=== PATIENT | male | born 1935 | race Caucasian/White ===

== ENCOUNTER 2021-11-04 08:09 | Emergency (ER) | payer OTHER, MEDICARE, BC ==
[~2021-11-04] VITALS: Ht 170.2 cm; Wt 72.7 kg
[~2021-11-04 08:09] MED LIST: ASPIRIN 32325 MG/TAB PO; ASPIRIN 81M81 MG/TA2 PO; ATENOLOL50 MG PO; BETAPACE 80MG80 MG PO; CLOPIDOGREL PO; COREG 25MG25 MG/TAB PO; CRESTOR20 MG PO; DOXAZOCIN PO; FISH OIL CONC1000 MG PO; FLOMAX 0.40.4 MG/CAP PO; GARLIC SUPPLEM300 MG PO; LIPITOR 80MG80 MG PO; MIRALAX PA17 GM/Dose PO; NORVASC 5MG5 MG/TAB PO; PRESERVISION1 SGL PO; REMERON SOLTAB15 MG PO; VITAMIN C BUFF500 MG PO; VITAMIN C500 MG PO; ZOCOR 20MG20 MG PO
[2021-11-04 08:20] VITALS: TEMP 97.6
[2021-11-04 09:38] LABS: BASO % 0.3 % (0.0-2.0); EOS # 0.5 K/mm3 (0.0-0.7); EOS % 3.6 % (0.0-4.0); GRAN # 10.7 K/mm3 (1.4-6.5); GRAN % 77.9 % (42.2-75.2); HEMATOCRIT 45.4 % (42.0-52.0); HEMOGLOBIN 14.9 g/dl (13.5-18.0); LYMPH # 1.8 K/mm3 (1.2-3.4); LYMPH % 12.9 % (20.0-51.0); MEAN CELL VOLUME 92 fl (80.0-100.0); MEAN CORPUSCULAR HEMOGLOBIN 30 pg (27-31); MEAN CORPUSCULAR HGB CONC 33 g/dl (33.0-37.0); MEAN PLATELET VOLUME 10.9 fl (7.4-10.4); MONO # 0.7 K/mm3 (0.1-0.6); MONO % 4.9 % (1.7-9.3); PLATELET COUNT 123 K/mm3 (130-400); RED BLOOD COUNT 4.92 M/mm3 (4.20-5.60); REDCELL DISTRIBUTION WIDTH-CV 13.3 % (11.5-14.5)
[2021-11-04 09:59] LABS: ALBUMIN 3.5 gm/dL (3.4-4.8); BILIRUBIN,TOTAL 1.1 mg/dL (0.2-1.2); CALCIUM 9.2 mg/dL (8.4-10.2); CREATININE, serum 1.12 mg/dL (0.72-1.25); POTASSIUM 4.7 mmol/L (3.5-4.5); TOTAL PROTEIN 6.8 gm/dL (6.2-8.1)
[2021-11-04 10:03] VITALS: BP 134/76; PULSE 77
== END 2021-11-04 10:02 | disposition home or self-care (01) ==
LOC: COL.ER 08:09
PROVIDERS: Family Medicine
DX: S00.93XA Contusion of unspecified part of head, initial encounter (principal); S40.012A Contusion of left shoulder, initial encounter; S80.12XA Contusion of left lower leg, initial encounter; Z87.891 Personal history of nicotine dependence; V49.40XA Driver injured in collision with unspecified motor vehicles in traffic accident, initial encounter; Y92.410 Unspecified street and highway as the place of occurrence of the external cause

== ENCOUNTER 2022-01-21 10:07 | Emergency (ER) | payer MEDICARE, BC ==
[~2022-01-21] VITALS: Ht 170.2 cm; Wt 72.7 kg
[2022-01-21] VITALS (78 sets, daily range): BP systolic 138; BP diastolic 78; PULSE 52; TEMP 96.8; O2SAT 77–99
[~2022-01-21 10:07] MED LIST changes: +COREG12.5 MG PO; +COZAAR 50MG50 MG/TAB PO; +EFFIENT10 MG PO; +JARDIANCE10 PO; +LASIX 20MG TABL20 MG PO; +LIPITOR 40MG TA40 MG PO
[2022-01-21 10:41] LABS: BASO % 0.6 % (0.0-2.0); EOS # 0.5 K/mm3 (0.0-0.7); EOS % 7.7 % (0.0-4.0); GRAN # 4.1 K/mm3 (1.4-6.5); GRAN % 59.4 % (42.2-75.2); HEMATOCRIT 44.3 % (42.0-52.0); HEMOGLOBIN 13.9 g/dl (13.5-18.0); LYMPH # 1.6 K/mm3 (1.2-3.4); LYMPH % 22.9 % (20.0-51.0); MEAN CELL VOLUME 97 fl (80.0-100.0); MEAN CORPUSCULAR HEMOGLOBIN 30 pg (27-31); MEAN CORPUSCULAR HGB CONC 31 g/dl (33.0-37.0); MONO # 0.6 K/mm3 (0.1-0.6); MONO % 9.3 % (1.7-9.3); PLATELET COUNT 151 K/mm3 (130-400); RED BLOOD COUNT 4.59 M/mm3 (4.20-5.60); REDCELL DISTRIBUTION WIDTH-CV 13.2 % (11.5-14.5)
[2022-01-21 11:00] LABS: ALBUMIN 3.4 gm/dL (3.4-4.8); BILIRUBIN,TOTAL 0.5 mg/dL (0.2-1.2); CALCIUM 8.8 mg/dL (8.4-10.2); CREATININE, serum 1.26 mg/dL (0.72-1.25); POTASSIUM 4.4 mmol/L (3.5-4.5); TOTAL PROTEIN 6.7 gm/dL (6.2-8.1)
[2022-01-21 11:10] LABS: TROPONIN-I 0.077 ng/mL (0.00-0.033)
== END 2022-01-21 14:57 | disposition home or self-care (01) ==
LOC: COL.ER 10:07
PROVIDERS: Emergency Medicine
DX: R53.83 Other fatigue (principal); I47.20 Ventricular tachycardia, unspecified; R77.8 Other specified abnormalities of plasma proteins; Z95.5 Presence of coronary angioplasty implant and graft; Z95.0 Presence of cardiac pacemaker; Z79.899 Other long term (current) drug therapy